=== PATIENT | male | born 1990 | race Caucasian/White ===

== ENCOUNTER 2021-11-19 19:20 | Emergency (ER) | payer OTHER ==
[~2021-11-19] VITALS: Ht 185.4 cm; Wt 82.0 kg
[2021-11-19 19:44] VITALS: BP 133/86
[2021-11-19] MEDS ORDERED: P20 PO (19:49)
[2021-11-19] MEDS ORDERED: CETI10CA2 PO (19:49)
[2021-11-19] MEDS ORDERED: epipen (19:49)
== END 2021-11-19 23:09 | disposition left against medical advice (07) ==
LOC: ER 19:20
DX: Z53.21 Procedure and treatment not carried out due to patient leaving prior to being seen by health care provider (principal)